=== PATIENT | female | born 2005 | race Caucasian/White ===

== ENCOUNTER 2024-11-09 06:22 | Day surgery (SDC) | payer OTHER, SELFPAY | END 2024-11-09 14:03 | disposition home or self-care (01) | LOC: GI 06:22 | PROVIDERS: ATTENDING PHYSICIAN Internal Medicine Gastroenterology | DX: K62.5 Hemorrhage of anus and rectum (principal); K60.2 Anal fissure, unspecified | CPT/HCPCS: 45378 ==